=== PATIENT | female | born 1960 | race Caucasian/White ===

== ENCOUNTER → 2023-04-01 08:13 | Outpatient (REF) | payer OTHER, SELFPAY | LOC: HWRAD 08:13 | PROVIDERS: ATTENDING PHYSICIAN Physician Assistant Medical; FAMILY PHYSICIAN Nurse Practitioner Adult Health | DX: K86.89 Other specified diseases of pancreas (principal) | CPT/HCPCS: 74170; Q9967 ==

== ENCOUNTER → 2023-04-24 15:54 | Outpatient (REF) | payer OTHER, SELFPAY | LOC: MRI 3T 15:54 | PROVIDERS: ATTENDING PHYSICIAN Podiatrist Foot & Ankle Surgery; FAMILY PHYSICIAN Nurse Practitioner Adult Health | DX: S93.622D Sprain of tarsometatarsal ligament of left foot, subsequent encounter (principal) | CPT/HCPCS: 73718 ==

== ENCOUNTER → 2024-11-15 10:04 | Outpatient (REF) | payer OTHER, SELFPAY | LOC: HWRAD 10:04 | PROVIDERS: ATTENDING PHYSICIAN Family Medicine; FAMILY PHYSICIAN Nurse Practitioner Adult Health | DX: R10.84 Generalized abdominal pain (principal) | CPT/HCPCS: 76700; 76830; 76856 ==